=== PATIENT | female | born 1960 | race Hispanic/Latino ===

== ENCOUNTER → 2019-08-25 | Outpatient (CLI) | payer OTHER ==
--- NOTE | 2019-08-25 09:32 | Diagnostic Imaging Report ---
EXAM: US ABDOMEN COMPLETE DATE: 08/25/2019 7:36 AM INDICATION: Cirrhosis COMPARISON: None TECHNIQUE: Transverse and longitudinal haider scale and color doppler sonographic images of the upper abdomen were obtained. FINDINGS: There is no evidence of fluid or masses seen in the area of clinical concern in the right lower quadrant. LIVER 17.1 cm in the right midclavicular line. Increased echogenicity of the liver with mildly nodular contour, no masses. SPLEEN 11.8 cm in maximum diameter. Normal echogenicity, no masses. GALLBLADDER There are several stones in the gallbladder measuring up to approximately 1.1 cm. No gallbladder wall thickening, call bladder distention, or pericholecystic fluid. Negative sonographic Lynn's sign. The gallbladder wall measures 2 mm. BILE DUCTS No intra nor extra-hepatic biliary dilation. Common bile duct measures 3 mm. PANCREAS: Visualized portions are normal. RIGHT KIDNEY: 10.2 cm Echogenicity: Normal Collecting System: No hydronephrosis Stones: None Cyst/Mass: 6 x 5 x 6 mm hyperechoic structure at the lower pole with some associated internal vascularity, possibly a small angiomyolipoma. LEFT KIDNEY: 9.9 cm Echogenicity: Normal Collecting System: No hydronephrosis Stones: None Cyst/Mass: None VESSELS: Aorta: Visualized portions are within normal size limits Inferior Vena Cava: Visualized portions are normal Main Portal Vein: 1.1 cm, normal size with hepatopetal flow. FREE FLUID: None IMPRESSION: Cholelithiasis without sonographic evidence of cholecystitis. Mild hepatomegaly, hepatic steatosis, and mildly nodular liver surface contour which can be seen with early cirrhosis. Signed by: Mu Chilel MD on 08/25/2019 9:29 AM
== END ==
LOC: US 07:30
PROVIDERS: ATTEND Internal Medicine Gastroenterology
DX: K74.60 Unspecified cirrhosis of liver (principal); K80.20 Calculus of gallbladder without cholecystitis without obstruction; R16.0 Hepatomegaly, not elsewhere classified; K76.0 Fatty (change of) liver, not elsewhere classified
CPT/HCPCS: 76700

== ENCOUNTER → 2020-04-28 | Outpatient (CLI) | payer OTHER ==
--- NOTE | 2020-04-28 09:03 | Diagnostic Imaging Report ---
EXAM: Right Upper Quadrant Ultrasound INDICATION: ^CIRRHOSIS COMPARISON: Abdominal ultrasound 08/25/2019 TECHNIQUE: Transverse and longitudinal images of the right upper abdomen were obtained. FINDINGS: Liver: Size: 15 cm in the right midclavicular line, normal Appearance: Normal echogenicity, smooth contour Mass: No focal masses Gallbladder: Stones/Sludge: Large mobile calculus within the gallbladder lumen Wall: 0.4 cm Appearance: No pericholecystic fluid or hydrops. Sonographic Lynn's Sign: Negative Bile Ducts: Intrahepatic Ducts: No dilatation Extrahepatic Ducts: Common bile duct measures 0.3 cm, no dilatation Pancreas: Visualized portions of the pancreatic head, neck and proximal body are normal. Right Kidney: Size: 10 cm Echogenicity: Normal Parenchymal thickness: Normal Collecting system: No hydronephrosis Stones: None Cyst/Mass: Round, hyperechoic lesion in the lower pole is again noted, and may have marginally increased in size, now measuring 0.7 x 0.6 x 0.8 cm. Vessels: Aorta: Nonaneurysmal Inferior Vena Cava: Patent Main Portal Vein: 1.2 cm, normal size with hepatopetal flow. Free Fluid: No ascites or pleural effusion IMPRESSION: Normal sonographic appearance of the liver. Subtle nodularity of the hepatic contour described on the comparison examination is less conspicuous on the current study. Cholelithiasis without sonographic evidence of acute cholecystitis. Hyperechoic lesion in the lower pole of the right kidney may have marginally increased in size in the interim. 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 Given interval increase in size, definitive characterization with CT scan of the abdomen with and without contrast (renal mass protocol) is suggested. Signed by: Dr. Benito Marie M.D. on 04/28/2020 8:59 AM
== END ==
LOC: US 07:36
PROVIDERS: ATTEND Internal Medicine Gastroenterology
DX: K74.60 Unspecified cirrhosis of liver (principal)
CPT/HCPCS: 76705

== ENCOUNTER 2022-10-31 09:39 | Inpatient (IN) | payer OTHER ==
[~2022-10-31] VITALS: Ht 165.1 cm; Wt 66.4 kg
[2022-10-31 09:59] LABS: BASOPHILS % 0.4 % (0.0-1.0); EOSINOPHILS # (AUTO) 0.1 (0.0-0.4); EOSINOPHILS % 0.9 % (0.0-6.0); HEMATOCRIT 32.7 % (34.2-44.1); LYMPHOCYTES # (AUTO) 0.6 (1.0-3.2); LYMPHOCYTES % 8.2 % (18.0-39.1); MEAN CORPUSCULAR HEMOGLOBIN 26.8 pg (28-32); MEAN CORPUSCULAR HGB CONC 30.6 g/dL (31-35); MEAN CORPUSCULAR VOLUME 87.7 fL (81-99); MONOCYTES # (AUTO) 0.7 (0.2-0.8); MONOCYTES % 9.2 % (4.4-11.3); NEUTROPHILS # (AUTO) 6.3 (2.1-6.9); NEUTROPHILS % 80.7 % (38.7-80.0); PLATELET COUNT 239 x10e3/uL (140-360); RED BLOOD COUNT 3.73 x10e6/uL (3.6-5.1); RED CELL DISTRIBUTION WIDTH 15.3 % (11.7-14.4)
[2022-10-31 10:22] LABS: ALBUMIN 3.9 g/dL (3.5-5.0); ALBUMIN/GLOBULIN RATIO 1.2 (0.8-2.0); ANION GAP 17.3 mmol/L (8-16); CALCIUM 9.2 mg/dL (8.4-10.2); CREATININE, SERUM 0.95 mg/dL (0.57-1.11); POTASSIUM 4.3 mmol/L (3.5-5.1)
[2022-10-31 12:26] LABS: CLARITY,URINE CLEAR (CLEAR); COLOR,URINE YELLOW (YELLOW); KETONES,URINE NEGATIVE (NEGATIVE); LEUKOCYTE ESTERASE ,URINE NEGATIVE (NEGATIVE); NITRITE,URINE NEGATIVE (NEGATIVE); PROTEIN,URINE DIPSTICK NEGATIVE (NEGATIVE)
[2022-10-31] MEDS ORDERED: FUROSEMIDE INJ 10 MG/ML 4 ML VIAL IV ONE ×2 (12:45→16:30)
[2022-10-31 12:46] LABS: BACTERIA,URINE FEW /HPF; EPITHELIAL CELLS,URINE RARE /LPF; RBC,URINE 0-5 /HPF (0-5); WBC,URINE (MAN) 0-5 /HPF (0-5)
[2022-10-31 15:23] VITALS: BP 115/61
[2022-10-31] MEDS ORDERED: DIGOXIN125 MCG (15:58)
[2022-10-31] MEDS ORDERED: LEVOTHYROXINE100 MCG (15:58)
[2022-10-31] MEDS ORDERED: SODIUM CHLORI1000 MG (15:58)
[2022-10-31] MEDS ORDERED: METFORMIN HCL850 MG (15:58)
[2022-10-31] MEDS ORDERED: LISINOPRIL2.5 MG (15:58)
[2022-10-31] MEDS ORDERED: FEROSUL325 MG (15:58)
[2022-10-31] MEDS ORDERED: SPIRONOLACTONE50 MG PO (15:58)
[2022-10-31] MEDS ORDERED: WARFARIN SODIUM5 MG PO (15:58)
[2022-10-31] MEDS ORDERED: FUROSEMIDE40 MG (15:58)
[2022-10-31] MEDS ORDERED: LOVASTATIN40 MG (15:58)
[2022-10-31 16:00] VITALS: BP 115/61
[2022-10-31] MEDS ORDERED: HEPARIN SOD (PORCINE) 5,000 UNIT/ML VIAL IV ONE (16:15)
[2022-10-31] MEDS ORDERED: HEPARIN 25,000 UNIT 1,100 UNIT in DEXTROSE 5% 250ML 250 ML IV SCH (16:15)
[2022-10-31] MEDS ORDERED: NON-FORMULARY MEDICATION (Spironolactone 50 MG) PO SCH (17:00)
[2022-10-31] MEDS: FUROSEMIDE 40 MG TAB PO SCH (17:13)
[2022-10-31] MEDS: FERROUS SULFATE 325 MG TAB PO SCH (17:13)
[2022-10-31 17:15] LABS: BLOOD UREA NITROGEN 23 mg/dL (7-26); GLUCOSE 184 mg/dL (74-118); OSMOLALITY,SERUM 256 mOsm/kg (278-305); SODIUM 123 mmol/L (136-145)
[2022-10-31 17:22] LABS: INR 2.5; PROTHROMBIN TIME 27.1 seconds (11.9-14.5)
[2022-10-31] MEDS: SPIRONOLACTONE 25 MG TAB PO SCH (17:33)
[2022-10-31] MEDS: HEPARIN 25,000 UNIT 1,100 UNIT in DEXTROSE 5% 250ML 250 ML IV SCH (17:47)
[2022-10-31] MEDS ORDERED: SODIUM CHLORIDE 1 GM TAB PO SCH (21:00)
[2022-10-31 21:43] VITALS: BP 116/64
[2022-11-01] VITALS (9 sets, daily range): BP systolic 101–123; BP diastolic 52–65
[2022-11-01] MEDS ORDERED: MELATONIN 5 MG TABLET PO ONE (00:15)
[2022-11-01] MEDS ORDERED: ACETAMINOPHEN 325 MG TAB PO ONE (00:15)
[2022-11-01] MEDS: HEPARIN 25,000 UNIT 1,100 UNIT in DEXTROSE 5% 250ML 250 ML IV SCH ×2 (02:44→21:10)
[2022-11-01] MEDS: GUAIFENESIN 600 MG TAB PO PRN ×2 (04:47→22:19)
[2022-11-01 05:33] LABS: BASOPHILS % 0.5 % (0.0-1.0); EOSINOPHILS # (AUTO) 0.1 (0.0-0.4); EOSINOPHILS % 1.4 % (0.0-6.0); HEMATOCRIT 28.3 % (34.2-44.1); HEMOGLOBIN 9.3 g/dL (12.0-16.0); LYMPHOCYTES # (AUTO) 0.7 (1.0-3.2); LYMPHOCYTES % 11.1 % (18.0-39.1); MEAN CORPUSCULAR HEMOGLOBIN 26.9 pg (28-32); MEAN CORPUSCULAR HGB CONC 32.9 g/dL (31-35); MEAN CORPUSCULAR VOLUME 81.8 fL (81-99); MONOCYTES # (AUTO) 0.6 (0.2-0.8); MONOCYTES % 9.5 % (4.4-11.3); NEUTROPHILS # (AUTO) 4.9 (2.1-6.9); NEUTROPHILS % 77.2 % (38.7-80.0); PLATELET COUNT 221 x10e3/uL (140-360); RED BLOOD COUNT 3.46 x10e6/uL (3.6-5.1); RED CELL DISTRIBUTION WIDTH 15.4 % (11.7-14.4)
[2022-11-01 05:47] LABS: INR 2.47; PROTHROMBIN TIME 26.9 seconds (11.9-14.5)
[2022-11-01] MEDS: LEVOTHYROXINE SODIUM 100 MCG TAB PO SCH (06:08)
[2022-11-01 06:12] LABS: ALBUMIN 3.8 g/dL (3.5-5.0); ALBUMIN/GLOBULIN RATIO 1.3 (0.8-2.0); ANION GAP 17.5 mmol/L (8-16); CALCIUM 9.2 mg/dL (8.4-10.2); POTASSIUM 4.5 mmol/L (3.5-5.1)
[2022-11-01 06:34] LABS: FERRITIN 136.83 ng/mL (4.63-204.00)
[2022-11-01 06:41] LABS: FREE T4 (FREE THYROXINE) 1.48 ng/dL (0.8-1.8); THYROID STIMULATING HORMONE 7.492 uIU/mL (0.350-4.940)
[2022-11-01] MEDS: SPIRONOLACTONE 25 MG TAB PO SCH ×2 (08:25→17:08)
[2022-11-01] MEDS: FUROSEMIDE 40 MG TAB PO SCH ×2 (08:25→17:08)
[2022-11-01] MEDS: POLYETHYLENE GLYCOL 3350 17 GM PACK PO SCH (08:25)
[2022-11-01] MEDS: DIGOXIN 0.125 MG TAB PO SCH (08:26)
[2022-11-01] MEDS: LISINOPRIL 2.5 MG TAB PO SCH (08:27)
[2022-11-01] MEDS: FERROUS SULFATE 325 MG TAB PO SCH ×2 (08:27→17:08)
[2022-11-01] MEDS ORDERED: SODIUM CHLORIDE 1 GM TAB PO SCH (09:00)
[2022-11-01 15:02] LABS: BASOPHILS % 0.7 % (0.0-1.0); EOSINOPHILS # (AUTO) 0.1 (0.0-0.4); EOSINOPHILS % 1.5 % (0.0-6.0); HEMATOCRIT 27.9 % (34.2-44.1); HEMOGLOBIN 9.2 g/dL (12.0-16.0); LYMPHOCYTES # (AUTO) 0.6 (1.0-3.2); MEAN CORPUSCULAR HEMOGLOBIN 27.5 pg (28-32); MEAN CORPUSCULAR VOLUME 83.5 fL (81-99); MONOCYTES # (AUTO) 0.6 (0.2-0.8); NEUTROPHILS # (AUTO) 4.8 (2.1-6.9); NEUTROPHILS % 79.1 % (38.7-80.0); PLATELET COUNT 197 x10e3/uL (140-360); RED BLOOD COUNT 3.34 x10e6/uL (3.6-5.1); RED CELL DISTRIBUTION WIDTH 15.7 % (11.7-14.4)
[2022-11-01 15:03] LABS: BODY FLUID APPEARANCE TURBID; BODY FLUID COLOR RED; BODY FLUID TYPE PERITONEAL; RBC,BODY FLUID 105000 cells/uL; WBC,BODY FLUID 385 cells/uL
[2022-11-01 15:35] LABS: LYMPHOCYTES,BODY FLUID 20 %; MONO/MACROPHG,BODY FLUID 30 %; NEUTROPHILS,BODY FLUID 4 %
[2022-11-01 15:36] LABS: OTHER CELLS,BODY FLUID 46 %
[2022-11-01] MEDS: FAMOTIDINE 20 MG TAB PO SCH (17:09)
[2022-11-01] MEDS ORDERED: DEXTROSE 50% SYRINGE 50 ML IV PRN (17:15)
[2022-11-01] MEDS: SODIUM CHLORIDE 1 GM TAB PO SCH ×2 (18:36→19:43)
[2022-11-01] MEDS: SIMVASTATIN 40 MG TAB PO SCH (19:43)
[2022-11-01] MEDS ORDERED: WARFARIN SOD 5 MG TAB PO ONE (21:45)
[2022-11-01] MEDS: MELATONIN 5 MG TABLET PO PRN (22:19)
[2022-11-01] MEDS: INSULIN LISPRO 100 UNIT/1 ML 3ML VIAL SQ SCH (22:23)
[2022-11-02] VITALS (7 sets, daily range): BP systolic 110–122; BP diastolic 53–73
[2022-11-02] MEDS ORDERED: HEPARIN 25,000 UNIT DRIP IV ONE ×2 (02:09→07:10)
[2022-11-02 04:59] LABS: BASOPHILS % 0.3 % (0.0-1.0); EOSINOPHILS # (AUTO) 0.1 (0.0-0.4); EOSINOPHILS % 1.2 % (0.0-6.0); HEMATOCRIT 28.6 % (34.2-44.1); HEMOGLOBIN 9.6 g/dL (12.0-16.0); LYMPHOCYTES # (AUTO) 0.8 (1.0-3.2); LYMPHOCYTES % 11.9 % (18.0-39.1); MEAN CORPUSCULAR HEMOGLOBIN 27.5 pg (28-32); MEAN CORPUSCULAR HGB CONC 33.6 g/dL (31-35); MEAN CORPUSCULAR VOLUME 81.9 fL (81-99); MONOCYTES # (AUTO) 0.8 (0.2-0.8); NEUTROPHILS # (AUTO) 5.1 (2.1-6.9); NEUTROPHILS % 75.2 % (38.7-80.0); PLATELET COUNT 210 x10e3/uL (140-360); RED BLOOD COUNT 3.49 x10e6/uL (3.6-5.1); RED CELL DISTRIBUTION WIDTH 15.6 % (11.7-14.4)
[2022-11-02 05:09] LABS: INR 2.26; PROTHROMBIN TIME 25.1 seconds (11.9-14.5)
[2022-11-02 05:19] LABS: ALBUMIN 3.6 g/dL (3.5-5.0); ALBUMIN/GLOBULIN RATIO 1.2 (0.8-2.0); ANION GAP 16.7 mmol/L (8-16); CALCIUM 8.9 mg/dL (8.4-10.2); CREATININE, SERUM 1.14 mg/dL (0.57-1.11); POTASSIUM 4.7 mmol/L (3.5-5.1)
[2022-11-02] MEDS: LEVOTHYROXINE SODIUM 100 MCG TAB PO SCH (06:14)
[2022-11-02] MEDS: HEPARIN 25,000 UNIT 1,100 UNIT in DEXTROSE 5% 250ML 250 ML IV SCH (07:01)
[2022-11-02] MEDS: INSULIN LISPRO 100 UNIT/1 ML 3ML VIAL SQ SCH ×4 (07:30→21:18)
[2022-11-02] MEDS: POLYETHYLENE GLYCOL 3350 17 GM PACK PO SCH (08:12)
[2022-11-02] MEDS: SPIRONOLACTONE 25 MG TAB PO SCH ×2 (08:12→16:27)
[2022-11-02] MEDS: FAMOTIDINE 20 MG TAB PO SCH ×2 (08:12→16:28)
[2022-11-02] MEDS: SODIUM CHLORIDE 1 GM TAB PO SCH ×3 (08:13→21:10)
[2022-11-02] MEDS: FERROUS SULFATE 325 MG TAB PO SCH ×2 (08:13→16:27)
[2022-11-02] MEDS: DIGOXIN 0.125 MG TAB PO SCH (08:13)
[2022-11-02] MEDS: LISINOPRIL 2.5 MG TAB PO SCH (08:13)
[2022-11-02] MEDS: FUROSEMIDE 40 MG TAB PO SCH ×2 (08:13→16:27)
[2022-11-02] MEDS ORDERED: ACETAMINOPHEN 325 MG TAB PO ONE (11:30)
[2022-11-02] MEDS: BENZONATATE 100 MG CAP PO SCH ×2 (16:27→21:10)
[2022-11-02] MEDS ORDERED: WARFARIN SOD 5 MG TAB PO SCH (17:00)
[2022-11-02] MEDS: SIMVASTATIN 40 MG TAB PO SCH (21:10)
[2022-11-02] MEDS: MELATONIN 5 MG TABLET PO PRN (21:11)
[2022-11-03] VITALS: BP 114/64
[2022-11-03] MEDS: GUAIFENESIN 600 MG TAB PO PRN (03:40)
[2022-11-03 04:00] VITALS: BP 109/54
[2022-11-03 05:01] LABS: BASOPHILS % 0.5 % (0.0-1.0); EOSINOPHILS # (AUTO) 0.1 (0.0-0.4); EOSINOPHILS % 1.8 % (0.0-6.0); HEMATOCRIT 27.8 % (34.2-44.1); HEMOGLOBIN 9.2 g/dL (12.0-16.0); LYMPHOCYTES # (AUTO) 0.7 (1.0-3.2); LYMPHOCYTES % 12.1 % (18.0-39.1); MEAN CORPUSCULAR HEMOGLOBIN 27.1 pg (28-32); MEAN CORPUSCULAR HGB CONC 33.1 g/dL (31-35); MONOCYTES # (AUTO) 0.6 (0.2-0.8); MONOCYTES % 9.6 % (4.4-11.3); NEUTROPHILS # (AUTO) 4.6 (2.1-6.9); NEUTROPHILS % 75.3 % (38.7-80.0); PLATELET COUNT 200 x10e3/uL (140-360); RED BLOOD COUNT 3.39 x10e6/uL (3.6-5.1); RED CELL DISTRIBUTION WIDTH 15.5 % (11.7-14.4)
[2022-11-03 05:14] LABS: INR 2.28; PROTHROMBIN TIME 25.3 seconds (11.9-14.5)
[2022-11-03 05:26] LABS: ANION GAP 15.6 mmol/L (8-16); CREATININE, SERUM 1.05 mg/dL (0.57-1.11); POTASSIUM 4.6 mmol/L (3.5-5.1)
[2022-11-03] MEDS: LEVOTHYROXINE SODIUM 100 MCG TAB PO SCH (05:57)
[2022-11-03] MEDS: INSULIN LISPRO 100 UNIT/1 ML 3ML VIAL SQ SCH ×2 (07:30→12:30)
[2022-11-03 08:25] VITALS: BP 105/56
[2022-11-03] MEDS: LISINOPRIL 2.5 MG TAB PO SCH (09:00)
[2022-11-03] MEDS: SPIRONOLACTONE 25 MG TAB PO SCH (09:00)
[2022-11-03] MEDS: SODIUM CHLORIDE 1 GM TAB PO SCH (10:00)
[2022-11-03] MEDS: BENZONATATE 100 MG CAP PO SCH (10:00)
[2022-11-03] MEDS: DIGOXIN 0.125 MG TAB PO SCH (10:00)
[2022-11-03] MEDS ORDERED: ACETAMINOPHEN 325 MG TAB PO ONE (10:00)
[2022-11-03] MEDS: FERROUS SULFATE 325 MG TAB PO SCH (10:00)
[2022-11-03] MEDS: FAMOTIDINE 20 MG TAB PO SCH (10:00)
[2022-11-03] MEDS: POLYETHYLENE GLYCOL 3350 17 GM PACK PO SCH (10:00)
[2022-11-03] MEDS ORDERED: WARFARIN SOD 5 MG TAB PO ONE (10:00)
[2022-11-03 10:50] VITALS: BP 105/56
[2022-11-03] MEDS ORDERED: Benzonatate PO (11:07)
[2022-11-03] MEDS ORDERED: FAMOTIDINE20 MG PO (11:07)
[2022-11-03 12:43] VITALS: BP 104/54
== END 2022-11-03 15:45 | disposition home health service (06) | DRG 432 ==
LOC: ER 09:43 → ERHOLD 12:39 → MED/SURG 15:24
PROVIDERS: ADMIT Internal Medicine; ATTEND Internal Medicine
PROC: 0W9G3ZZ Drainage of Peritoneal Cavity, Percutaneous Approach (ICD-10-PCS; principal; 2022-11-01)
DX: K74.60 Unspecified cirrhosis of liver (principal); J81.0 Acute pulmonary edema; I38 Endocarditis, valve unspecified; I13.0 Hypertensive heart and chronic kidney disease with heart failure and stage 1 through stage 4 chronic kidney disease, or unspecified chronic kidney disease; E03.9 Hypothyroidism, unspecified; E78.00 Pure hypercholesterolemia, unspecified; Z79.01 Long term (current) use of anticoagulants; Z95.2 Presence of prosthetic heart valve; E11.22 Type 2 diabetes mellitus with diabetic chronic kidney disease; N18.2 Chronic kidney disease, stage 2 (mild); I07.1 Rheumatic tricuspid insufficiency; I50.813 Acute on chronic right heart failure; E80.6 Other disorders of bilirubin metabolism; E78.5 Hyperlipidemia, unspecified; E11.69 Type 2 diabetes mellitus with other specified complication; I27.20 Pulmonary hypertension, unspecified; R05.9 Cough, unspecified; Z20.822 Contact with and (suspected) exposure to COVID-19
CPT/HCPCS: 36415; 49083; 71045; 71046; 80048; 80053; 80162; 81001; 82040; 82607; 82728; 82746; 82947; 82948; 83540; 83880; 83935; 84157; 84295; 84439; 84443; 84466; 84484; 84520; 85025; 85610; 85730; 86707; 87070; 87205; 87340; 88112; 88300; 88305; 88342; 89051; 93005; 93306; 94799; 96361; 99284; C1729; J1644; J1940